=== PATIENT | female | born 2000 | race Caucasian/White ===

== ENCOUNTER 2022-03-27 15:59 | Emergency (ER) | payer MEDICAID ==
[~2022-03-27] VITALS: Ht 160 cm; Wt 118.8 kg
[2022-03-27 16:17] VITALS: BP 145/78
--- NOTE | 2022-03-27 16:30 | NUR ---
21/F PRESENTS TO ED WITH C/O CUT BETWEEN 4TH AND 5TH DIGIT ON LEFT FOOT X2 DAYS, STATES UNSURE HOW IT OCCURRED. REPORTS USING NEOSPORIN WITH NO RELIEF, PATIENT AMBULATORY.
[2022-03-27] MEDS ORDERED: BACI1PAC6 TP (16:34)
[2022-03-27 16:49] VITALS: BP 145/78
--- NOTE | 2022-03-27 16:49 | NUR ---
Patient discharged with v/s stable. Written and verbal after care instructions ABOUT SKIN TEAR given and explained. Patient alert, oriented and verbalized understanding of instructions. Ambulatory with steady gait. All questions addressed prior to discharge. ID band removed. Patient advised to follow up with PMD. Rx of BACITRACIN given. Patient educated on indication of medication including possible reaction and side effects. Opportunity to ask questions provided and answered.
== END 2022-03-27 16:49 | disposition home or self-care (01) ==
LOC: MED 15:59
DX: S91.312A Laceration without foreign body, left foot, initial encounter (principal); F17.290 Nicotine dependence, other tobacco product, uncomplicated; Z79.899 Other long term (current) drug therapy; X58.XXXA Exposure to other specified factors, initial encounter; Y93.89 Activity, other specified; Y92.89 Other specified places as the place of occurrence of the external cause; Y99.8 Other external cause status
CPT/HCPCS: 99282

== ENCOUNTER 2022-05-06 13:28 | Emergency (ER) | payer MEDICAID ==
[~2022-05-06] VITALS: Ht 157.5 cm; Wt 100.7 kg
[~2022-05-06 13:28] MED LIST: BACI1PAC6 TP
[2022-05-06 13:50] VITALS: BP 144/89
--- NOTE | 2022-05-06 13:52 | NUR ---
21/F WALKED IN C/O LEFT FOOT PAIN ONSET 2 DAYS AGO AFTER DROPPING A BOTTLE OF PERFUME. NO DEFORMITY NOTED, NO OPEN WOUND OR BRUISING NOTED. STATES 9/10 PAIN. AAOX4, AMBULATORY. VITALS STABLE. PMH: DENIES.
[2022-05-06 13:59] VITALS: BP 144/89
[2022-05-06] MEDS ORDERED: IBUPROFEN 600 MG TAB PO ONE (14:45)
--- NOTE | 2022-05-06 14:51 | NUR ---
PT WENT FOR XR
[2022-05-06] MEDS ORDERED: IBUP-2213 PO (15:16)
--- NOTE | 2022-05-06 15:40 | NUR ---
Patient discharged with v/s stable. Written and verbal after care instructions given and explained. Patient verbalized understanding. Ambulatory with steady gait. All questions addressed prior to discharge. Advised to follow up with PMD.
== END 2022-05-06 15:40 | disposition home or self-care (01) ==
LOC: MED 13:28
DX: S90.32XA Contusion of left foot, initial encounter (principal); R03.0 Elevated blood-pressure reading, without diagnosis of hypertension; Z79.899 Other long term (current) drug therapy; W22.8XXA Striking against or struck by other objects, initial encounter; Y93.89 Activity, other specified; Y92.89 Other specified places as the place of occurrence of the external cause; Y99.8 Other external cause status
CPT/HCPCS: 73630; 99283

== ENCOUNTER 2022-06-20 19:16 | Emergency (ER) | payer MEDICAID ==
[~2022-06-20 19:16] MED LIST changes: +IBUP-2213 PO
--- NOTE | 2022-06-20 19:53 | NUR ---
PATIENT CALL TO TRIAGE , NO RESPONSE PATIENT LEFT WITHOUT BEING SEEN BY DR. PADILLA. NO FURTHER CARE PROVIDED FOR PATIENT.
--- NOTE | 2022-06-20 20:00 | NUR ---
CALL OVER CELLPHONE, WENT TO [facility]
== END 2022-06-20 19:53 | disposition left against medical advice (07) ==
LOC: MED 19:16
DX: R50.9 Fever, unspecified (principal); Z53.21 Procedure and treatment not carried out due to patient leaving prior to being seen by health care provider

== ENCOUNTER 2022-09-26 18:22 | Emergency (ER) | payer MEDICAID ==
[~2022-09-26] VITALS: Ht 160 cm; Wt 97.5 kg
[~2022-09-26 18:22] MED LIST changes: +BACI-416 TP; -BACI1PAC6 TP
[2022-09-26] MEDS ORDERED: IBUPROFEN 600 MG TAB PO ONE (18:25)
[2022-09-26] MEDS ORDERED: FAMOTIDINE 20 MG TAB PO ONE (18:25)
[2022-09-26] MEDS ORDERED: ALUMINUM HYD/MAG/SIMETHICONE 30 ML UDC PO ONE (18:25)
[2022-09-26 18:26] VITALS: BP 130/60
--- NOTE | 2022-09-26 18:30 | NUR ---
21 y/o female biba from home, pt presents to ed with new onset of CP and SOB while walking outside with family, states she has a pressure-like pain 7/10 that increases with inspiration. pt denies any fever, chills, cough, or recent sick contacts. a&ox4, ambulates with steady gait, lungs clear bl. pmh: asthma nka med: denies
[2022-09-26 18:43] LABS: BASOPHILS % (AUTO) 0.5 % (0.0-2.0); EOSINOPHILS # (AUTO) 0.3 K/uL (0-0.4); EOSINOPHILS % (AUTO) 2.9 % (0.0-4.0); HEMATOCRIT 41.2 % (36-48); HEMOGLOBIN 13.6 g/dL (12.0-16.0); LYMPHOCYTES # (AUTO) 2.3 K/uL (2.5-16.5); LYMPHOCYTES % (AUTO) 25.6 % (20.5-51.1); MEAN CORPUSCULAR HEMOGLOBIN 28 pg (27-31); MEAN CORPUSCULAR HGB CONC 33 g/dL (33-37); MEAN CORPUSCULAR VOLUME 84.5 fL (80-94); MONOCYTES # (AUTO) 0.7 K/uL (0.8-1.0); MONOCYTES % (AUTO) 8.2 % (1.7-9.3); NEUTROPHILS # (AUTO) 5.6 K/uL (1.8-7.7); NEUTROPHILS % (AUTO) 62.8 % (42.2-75.2); PLATELET COUNT (AUTO) 284 K/uL (140-450); RED BLOOD CELL COUNT(AUTO) 4.87 MIL/uL (4.20-5.40); RED CELL DISTRIBUTION WIDTH 13.7 % (11.6-13.7); WHITE BLOOD COUNT (AUTO) 8.9 K/uL (4.5-11.0)
[2022-09-26 19:00] LABS: ALBUMIN 3.8 g/dL (3.4-5.0); ANION GAP 9.2 (8-16); ASPARTATE AMINOTRANSFERASE 108 U/L (15-37); CARBON DIOXIDE 31.6 mmol/L (21-32); CHLORIDE 104 mmol/L (98-107); CREATININE 0.7 mg/dL (0.6-1.3); GFR ARICAN-AMERICAN 137 mL/min (>90); GLUCOSE 88 mg/dL (74-106); LIPASE 74 U/L (73-393); POTASSIUM 3.8 mmol/L (3.5-5.1); SODIUM SERUM 141 mmol/L (136-145); TOTAL BILIRUBIN 0.5 mg/dL (0.0-1.0); UREA NITROGEN, BLOOD 10 mg/dL (7-18)
--- NOTE | 2022-09-26 20:06 | NUR ---
PT TAKEN TO XR.
--- NOTE | 2022-09-26 20:06 | NUR ---
PT TO BED 05.
--- NOTE | 2022-09-26 20:15 | NUR ---
PT RETURN FROM ULTRASOUND TO ER BED 5
--- NOTE | 2022-09-26 20:16 | NUR ---
Dr. Bermudez examining patient.
[2022-09-26] MEDS ORDERED: FAMO-90 PO (21:11)
[2022-09-26] MEDS ORDERED: IBUP-2213 PO (21:11)
[2022-09-26 21:18] VITALS: BP 134/63
--- NOTE | 2022-09-26 21:18 | NUR ---
Patient discharged with v/s stable. Written and verbal after care instructions given and explained. Patient alert, oriented and verbalized understanding of instructions. Ambulatory with steady gait. All questions addressed prior to discharge. ID band removed. Patient advised to follow up with PMD. Rx of FAMOTIDINEAND IBUPROFEN given. Patient educated on indication of medication including possible reaction and side effects. Opportunity to ask questions provided and answered.
== END 2022-09-26 21:18 | disposition home or self-care (01) ==
LOC: MED 18:22
DX: K76.0 Fatty (change of) liver, not elsewhere classified (principal); R07.9 Chest pain, unspecified; J45.909 Unspecified asthma, uncomplicated; Z79.899 Other long term (current) drug therapy
CPT/HCPCS: 36415; 71045; 76705; 80053; 83690; 84484; 85025; 85379; 99285; Q0092

== ENCOUNTER 2023-07-09 14:48 | Emergency (ER) | payer MEDICAID ==
[~2023-07-09] VITALS: Ht 162.6 cm; Wt 108.0 kg
[~2023-07-09 14:48] MED LIST changes: -BACI-416 TP; +BACI-418 TP; +FAMO-90 PO
[2023-07-09 15:21] VITALS: BP 110/68; PULSE 79; RESP 18; TEMP 98; O2SAT 99
[2023-07-09] MEDS ORDERED: MORPHINE SULFATE 4 MG/ML SYR IM ONE (15:50)
[2023-07-09 16:17] LABS: APPEARANCE,URINE CLEAR (CLEAR); BILIRUBIN,URINE NEGATIVE (NEGATIVE); BLOOD, URINE NEGATIVE (NEGATIVE); COLOR,URINE YELLOW (YELLOW); LEUKOCYTE ESTERASE ,URINE TRACE (NEGATIVE); NITRITE, URINE NEGATIVE (NEGATIVE); PROTEIN,URINE NEGATIVE (NEGATIVE); UGLUCOSE NEGATIVE (NEGATIVE)
[2023-07-09 16:30] LABS: BACTERIA,URINE 1+ /HPF (None Seen); MUCUS,URINE None Seen /LPF (None Seen); RBC,URINE 0-5 /HPF (0-5); SQUAMOUS EPITHELIAL CELL,UR 0-3 (FEW) /LPF (0-3 (FEW)); TRICHOMONAS,URINE None Seen /HPF (None Seen); YEAST,URINE None Seen /HPF (None Seen)
[2023-07-09] MEDS ORDERED: CEPH-588 PO (17:16)
[2023-07-09 17:38] VITALS: BP 110/68; PULSE 79; RESP 18; TEMP 98; O2SAT 99
== END 2023-07-09 17:40 | disposition home or self-care (01) ==
LOC: MED 14:48
DX: N39.0 Urinary tract infection, site not specified (principal); J45.909 Unspecified asthma, uncomplicated; Z79.899 Other long term (current) drug therapy
CPT/HCPCS: 81001; 81025; 87086; 99283

== ENCOUNTER 2023-10-13 21:30 | Emergency (ER) | payer MEDICAID ==
[~2023-10-13] VITALS: Ht 162.6 cm; Wt 113.4 kg
[~2023-10-13 21:30] MED LIST changes: +CEPH-588 PO
[2023-10-13 22:09] VITALS: BP 111/67; PULSE 85; RESP 16; TEMP 97.8; O2SAT 97
[2023-10-13 22:53] LABS: APPEARANCE,URINE HAZY (CLEAR); BILIRUBIN,URINE NEGATIVE (NEGATIVE); BLOOD, URINE TRACE-I (NEGATIVE); COLOR,URINE YELLOW (YELLOW); LEUKOCYTE ESTERASE ,URINE 3+ (NEGATIVE); NITRITE, URINE NEGATIVE (NEGATIVE); PROTEIN,URINE NEGATIVE (NEGATIVE); UGLUCOSE NEGATIVE (NEGATIVE); UROBILINOGEN,URINE 0.2 EU/dL (0.2 - 1)
[2023-10-13 23:10] LABS: BACTERIA,URINE 2+ /HPF (None Seen); RBC,URINE 0-5 /HPF (0-5); WBC,URINE 20-60 /HPF (0-5)
[2023-10-13 23:34] LABS: BASOPHILS # (AUTO) 0.1 K/uL (0.00-0.22); BASOPHILS % (AUTO) 0.6 % (0.0-2.0); EOSINOPHILS # (AUTO) 0.2 K/uL (0-0.4); EOSINOPHILS % (AUTO) 1.8 % (0.0-4.0); HEMATOCRIT 37.7 % (36-48); HEMOGLOBIN 12.5 g/dL (12.0-16.0); LYMPHOCYTES # (AUTO) 2.8 K/uL (2.5-16.5); LYMPHOCYTES % (AUTO) 24.8 % (20.5-51.1); MEAN CORPUSCULAR HEMOGLOBIN 27 pg (27-31); MEAN CORPUSCULAR HGB CONC 33 g/dL (33-37); MEAN CORPUSCULAR VOLUME 81.7 fL (80-94); MONOCYTES % (AUTO) 8.9 % (1.7-9.3); NEUTROPHILS # (AUTO) 7.3 K/uL (1.8-7.7); NEUTROPHILS % (AUTO) 63.9 % (42.2-75.2); PLATELET COUNT (AUTO) 293 K/uL (140-450); RED BLOOD CELL COUNT(AUTO) 4.62 MIL/uL (4.20-5.40); RED CELL DISTRIBUTION WIDTH 14.1 % (11.6-13.7); WHITE BLOOD COUNT (AUTO) 11.4 K/uL (4.8-10.8)
[2023-10-13 23:43] LABS: ANION GAP 14.2 (8-16); CARBON DIOXIDE 24.2 mmol/L (21-32); CREATININE 0.6 mg/dL (0.6-1.3); POTASSIUM 3.4 mmol/L (3.5-5.1)
[2023-10-13 23:55] LABS: ALBUMIN 3.2 g/dL (3.4-5.0); BILIRUBIN,DIRECT 0.1 mg/dL (0.0-0.3); TOTAL BILIRUBIN 0.2 mg/dL (0.0-1.0); TOTAL PROTEIN, SERUM 8.3 g/dL (6.4-8.2)
[2023-10-14] MEDS ORDERED: PNV1TABL5 PO (01:49)
[2023-10-14] MEDS ORDERED: DOXY1TCP PO (01:49)
[2023-10-14] MEDS ORDERED: CEPH-588 PO (01:49)
== END 2023-10-14 01:56 | disposition home or self-care (01) ==
LOC: MED 21:30
DX: O00.01 Abdominal pregnancy with intrauterine pregnancy (principal); O23.41 Unspecified infection of urinary tract in pregnancy, first trimester; N39.0 Urinary tract infection, site not specified; O21.9 Vomiting of pregnancy, unspecified; Z3A.01 Less than 8 weeks gestation of pregnancy; Z79.899 Other long term (current) drug therapy
CPT/HCPCS: 36415; 76801; 80048; 80076; 81001; 81025; 83690; 84702; 85025; 87086; 99284

== ENCOUNTER 2023-10-28 14:22 | Emergency (ER) | payer MEDICAID ==
[~2023-10-28] VITALS: Ht 160 cm; Wt 102.1 kg
[~2023-10-28 14:22] MED LIST changes: +DOXY1TCP PO; +PNV1TABL5 PO
[2023-10-28 15:05] VITALS: BP 115/70; PULSE 98; RESP 19; TEMP 96.6; O2SAT 98
[2023-10-28 16:00] VITALS: O2SAT 98
[2023-10-28 17:33] LABS: BASOPHILS % (AUTO) 0.5 % (0.0-2.0); EOSINOPHILS # (AUTO) 0.1 K/uL (0-0.4); EOSINOPHILS % (AUTO) 1.3 % (0.0-4.0); HEMATOCRIT 39.3 % (36-48); LYMPHOCYTES # (AUTO) 2.1 K/uL (2.5-16.5); LYMPHOCYTES % (AUTO) 22.2 % (20.5-51.1); MEAN CORPUSCULAR HEMOGLOBIN 27 pg (27-31); MEAN CORPUSCULAR HGB CONC 33 g/dL (33-37); MEAN CORPUSCULAR VOLUME 82.1 fL (80-94); MONOCYTES # (AUTO) 0.8 K/uL (0.8-1.0); NEUTROPHILS # (AUTO) 6.5 K/uL (1.8-7.7); PLATELET COUNT (AUTO) 280 K/uL (140-450); RED BLOOD CELL COUNT(AUTO) 4.79 MIL/uL (4.20-5.40); RED CELL DISTRIBUTION WIDTH 14.3 % (11.6-13.7); WHITE BLOOD COUNT (AUTO) 9.6 K/uL (4.8-10.8)
[2023-10-28 17:53] LABS: APPEARANCE,URINE CLOUDY (CLEAR); BILIRUBIN,URINE NEGATIVE (NEGATIVE); BLOOD, URINE 2+ (NEGATIVE); COLOR,URINE YELLOW (YELLOW); LEUKOCYTE ESTERASE ,URINE 3+ (NEGATIVE); NITRITE, URINE NEGATIVE (NEGATIVE); PROTEIN,URINE TRACE (NEGATIVE); UGLUCOSE NEGATIVE (NEGATIVE); UROBILINOGEN,URINE 0.2 EU/dL (0.2 - 1)
[2023-10-28 18:23] LABS: BACTERIA,URINE 1+ /HPF (None Seen); MUCUS,URINE 1+ /LPF (None Seen); RBC,URINE 50-80 /HPF (0-5); SQUAMOUS EPITHELIAL CELL,UR 4-10 (MOD) /LPF (0-3 (FEW)); TRICHOMONAS,URINE None Seen /HPF (None Seen); WBC,URINE 60-80 /HPF (0-5); YEAST,URINE None Seen /HPF (None Seen)
[2023-10-28] MEDS ORDERED: CEFP100T18 PO (18:29)
== END 2023-10-28 18:38 | disposition home or self-care (01) ==
LOC: MED 14:22
DX: O03.9 Complete or unspecified spontaneous abortion without complication (principal); O23.11 Infections of bladder in pregnancy, first trimester; J45.909 Unspecified asthma, uncomplicated; Z3A.01 Less than 8 weeks gestation of pregnancy; Z79.899 Other long term (current) drug therapy
CPT/HCPCS: 36415; 76817; 81001; 84702; 85025; 86900; 86901; 87086; 99284

== ENCOUNTER 2023-11-10 23:12 | Emergency (ER) | payer MEDICAID ==
[~2023-11-10] VITALS: Ht 162.6 cm; Wt 97.5 kg
[~2023-11-10 23:12] MED LIST changes: +CEFP100T18 PO
[2023-11-10 23:25] VITALS: BP 105/70; PULSE 85; RESP 20; TEMP 97.9; O2SAT 99
[2023-11-11] MEDS ORDERED: ACET-10509 PO (00:33)
[2023-11-11 00:44] VITALS: BP 105/70; PULSE 85; RESP 20; TEMP 97.9; O2SAT 99
[2023-11-11] MEDS: ACETAMINOPHEN 325 MG TAB PO ONE (00:47)
== END 2023-11-11 00:44 | disposition home or self-care (01) ==
LOC: MED 23:12
DX: O99.351 Diseases of the nervous system complicating pregnancy, first trimester (principal); G44.209 Tension-type headache, unspecified, not intractable; O21.8 Other vomiting complicating pregnancy; O99.511 Diseases of the respiratory system complicating pregnancy, first trimester; J45.909 Unspecified asthma, uncomplicated; Z3A.10 10 weeks gestation of pregnancy; Z79.899 Other long term (current) drug therapy
CPT/HCPCS: 99283